=== PATIENT | female | born 1955 | race Native Hawaiian/Other Pacific Islander ===

== ENCOUNTER 2016-11-26 15:04 | Emergency (ER) | payer OTHER ==
[~2016-11-26] VITALS: Ht 152.4 cm; Wt 85.7 kg
== END 2016-11-26 17:04 | disposition home or self-care (01) ==
LOC: ED 15:04
DX: S20.212A Contusion of left front wall of thorax, initial encounter (principal); S20.211A Contusion of right front wall of thorax, initial encounter; W17.89XA Other fall from one level to another, initial encounter
CPT/HCPCS: 96372; 99283; J1885

== ENCOUNTER 2018-02-01 09:34 | Emergency (ER) | payer OTHER ==
[~2018-02-01] VITALS: Ht 154.9 cm; Wt 83.9 kg
[2018-02-01 09:39] VITALS: TEMP 97.9
[2018-02-01 11:39] VITALS: BP 118/64
== END 2018-02-01 11:39 | disposition home or self-care (01) ==
LOC: ED 09:34
DX: J44.1 Chronic obstructive pulmonary disease with (acute) exacerbation (principal)
CPT/HCPCS: 99283